=== PATIENT | male | born 1950 | race Caucasian/White ===

== ENCOUNTER → 2023-11-04 09:07 | Day surgery (SDC) | payer MEDICARE, OTHER, SELFPAY | LOC: GI 09:07 | PROVIDERS: ATTENDING PHYSICIAN Internal Medicine | DX: Z12.11 Encounter for screening for malignant neoplasm of colon (principal); D12.3 Benign neoplasm of transverse colon; D12.5 Benign neoplasm of sigmoid colon; D12.8 Benign neoplasm of rectum | CPT/HCPCS: 45385; 45380; 88305 ==

== ENCOUNTER → 2024-01-02 14:14 | Outpatient (REF) | payer MEDICARE, OTHER, SELFPAY | LOC: PAVMRI 14:14 | PROVIDERS: ATTENDING PHYSICIAN Psychiatry & Neurology Neurology; FAMILY PHYSICIAN Family Medicine | DX: R41.3 Other amnesia (principal) | CPT/HCPCS: 70553; A9575 ==

== ENCOUNTER 2024-02-10 08:00 | Day surgery (SDC) | payer MEDICARE, OTHER, SELFPAY ==
[2024-02-10 08:23] VITALS: BMI 27.3
[2024-02-10 08:24] VITALS: BP 143/88; BMI 27.3
[2024-02-10 11:45] VITALS: BP 93/52
[2024-02-10 11:49] VITALS: BP 122/58
[2024-02-10 12:00] VITALS: BP 116/72
== END 2024-02-10 12:15 | disposition home or self-care (01) ==
LOC: GI 08:00
PROVIDERS: ATTENDING PHYSICIAN Internal Medicine
DX: Z12.11 Encounter for screening for malignant neoplasm of colon (principal); Z86.010 Personal history of colon polyps; K57.30 Diverticulosis of large intestine without perforation or abscess without bleeding; D12.5 Benign neoplasm of sigmoid colon; D12.3 Benign neoplasm of transverse colon; D12.0 Benign neoplasm of cecum; D12.2 Benign neoplasm of ascending colon
CPT/HCPCS: 45385; 45380; 88305

== ENCOUNTER → 2024-06-29 15:12 | Outpatient (REF) | payer MEDICARE, OTHER, SELFPAY | LOC: RAD 15:12 | PROVIDERS: ATTENDING PHYSICIAN Family Medicine | DX: M25.572 Pain in left ankle and joints of left foot (principal) | CPT/HCPCS: 73610 ==

== ENCOUNTER 2024-11-17 09:55 | Emergency (ER) | payer MEDICARE, OTHER, SELFPAY ==
[2024-11-17 10:00] VITALS: BP 145/79; BMI 22.4
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
[2024-11-17] MEDS: TYLENOL 1000 MG PO (10:18)
[2024-11-17 12:35] VITALS: BP 119/71
== END 2024-11-17 12:40 | disposition home or self-care (01) ==
LOC: EMR 09:55
PROVIDERS: EMERGENCY PHYSICIAN Emergency Medicine; FAMILY PHYSICIAN Family Medicine
DX: M54.2 Cervicalgia (principal); M79.642 Pain in left hand; V43.52XA Car driver injured in collision with other type car in traffic accident, initial encounter
CPT/HCPCS: 29125; 99284; 70450; 72125; 73130

== ENCOUNTER 2025-01-27 06:06 | Day surgery (SDC) | payer MEDICARE, OTHER, SELFPAY ==
[2025-01-27 08:40] VITALS: BMI 25.2
[2025-01-27 08:42] VITALS: BP 134/71
[2025-01-27 10:21] VITALS: BP 109/65
[2025-01-27 10:30] VITALS: BP 117/80
[2025-01-27 10:45] VITALS: BP 127/77
== END 2025-01-27 11:18 | disposition home or self-care (01) ==
LOC: SDS 06:06
PROVIDERS: ATTENDING PHYSICIAN Internal Medicine
DX: Z12.11 Encounter for screening for malignant neoplasm of colon (principal); Z53.8 Procedure and treatment not carried out for other reasons; D12.3 Benign neoplasm of transverse colon; Z86.0100 Personal history of colon polyps, unspecified
CPT/HCPCS: 45385; 88305

== ENCOUNTER → 2025-07-11 14:06 | Outpatient (REF) | payer MEDICARE, OTHER, SELFPAY | LOC: RCS 14:06 | PROVIDERS: ATTENDING PHYSICIAN Internal Medicine Cardiovascular Disease; FAMILY PHYSICIAN Family Medicine | DX: R42 Dizziness and giddiness (principal); Z79.899 Other long term (current) drug therapy | CPT/HCPCS: 93017 ==

== ENCOUNTER → 2025-07-29 10:06 | Outpatient (REF) | payer MEDICARE, OTHER, SELFPAY | LOC: RCS 10:06 | PROVIDERS: ATTENDING PHYSICIAN Internal Medicine Cardiovascular Disease; FAMILY PHYSICIAN Family Medicine | DX: R42 Dizziness and giddiness (principal) | CPT/HCPCS: 93306 ==